=== PATIENT | female | born 2000 | race Caucasian/White ===

== ENCOUNTER 2023-04-11 20:18 | Emergency (ER) | payer SELFPAY ==
[~2023-04-11] VITALS: Ht 165 cm; Wt 58.9 kg
[2023-04-11 20:39] VITALS: BP 113/67
[2023-04-11] MEDS ORDERED: AMOX1TAB12 PO (21:09)
--- NOTE | 2023-04-11 21:09 | ED EENT ---
History of Present Illness General Chief Complaint: Dental Problems/Pain Stated Complaint: JAW PAIN Nursing Triage Note: PATIENT STATES JAW PN X2 DAYS. DENIES INJURY. Source: patient Exam Limitations: no limitations History of Present Illness Date Seen by Provider: Apr 11, 2023 Time Seen by Provider: 21:04 Initial Comments Patient is a 22-year-old female who presents to the ED presents ED with left- sided jaw pain. She states pain over the past 2 days. She denies of any specific injury. She has had some pain and discomfort to her lower teeth over the past week but no notable swelling or redness around her teeth. She describes as more sensitivity. She denies of any facial swelling redness ear pain headache dizziness. She does note some popping around her jaw as well. Patient denies fever, chills, body aches, headache, dizziness, chest pain, shortness of breath, neck pain. She has been taking Tylenol without much improvement. Allergies and Home Medications Allergies Coded Allergies: No Known Drug Allergies (Unverified , 04/11/23) Patient Home Medication List Home Medication List Reviewed: Yes Amoxicillin/Potassium Clav (Amox Tr-K Clv 875-125 mg Tab) 875 Mg-125 Mg Tablet, 1 EACH PO BID Prescribed by: PARMINDER GALLO on 04/11/232108 Review of Systems Review of Systems Constitutional: No chills, No diaphoresis, No malaise, No weakness Eyes: Denies Blurred Vision, Denies Drainage, Denies Decreased Acuity Ears: Denies Dizziness, Denies Pain Nose: denies clots, denies congestion, denies pain Mouth: denies clots, denies loose teeth; pain Throat: denies pain, denies swelling Respiratory: No cough, No dyspnea on exertion Cardiovascular: No chest pain Gastrointestinal: No abdominal pain, No diarrhea, No nausea, No vomiting Musculoskeletal: No back pain, No joint pain, No joint swelling, No muscle pain Skin: No change in color, No change in hair/nails All Other Systems Reviewed Negative Unless Noted: Yes Past [id number] Hx Immunizations Up To Date Influenza Vaccine Up-to-Date: Yes; Up-to-Date Physical Exam Vital Signs Vital Signs - First Documented 04/11/23 20:39 Temp 37.2 Pulse 74 Resp 20 B/P (MAP) 113/67 (82) Pulse Ox 98 O2 Delivery Room Air Height, Weight, BMI Height: '" Weight: lbs. oz. kg; 21.00 BMI Method: General Appearance: WD/WN, no apparent distress Eyes: bilateral eye normal inspection, bilateral eye PERRL, bilateral eye EOMI Ears: bilateral ear auricle normal, bilateral ear canal normal, bilateral ear TM normal Nose: normal inspection Mouth/Throat: other (No significant decay. Mild tenderness to the left second molar. No obvious dental fracture. No significant jaw swelling or redness. Clicking of the left TMJ with tenderness to the left lower jawline. No thyroid tenderness. No facial redness) Neck: non-tender, full range of motion, supple, normal inspection Cardiovascular: regular rate, rhythm, no edema, no gallop, no JVD Respiratory: chest non-tender, lungs clear, no accessory muscle use Gastrointestinal: normal bowel sounds, non tender, soft, no organomegaly Neurologic/Psychiatric: physical [employer] employee II-XII nml as tested, no motor/sensory deficits, alert, normal mood/affect, oriented x 3 Skin: normal color Progress/Results/Core Measures Results/Orders My Orders Orders - PRINCESS HURD Amoxicillin/Clavulanate Tablet (Amoxicil (04/11/23 21:10) Ibuprofen Tablet (Ibuprofen Tablet) (04/11/23 21:15) Medications Given in ED Current Medications Medications Dose Ordered Sig/Lizeth Route Start Time Stop Time Status Last Admin Dose Admin Ibuprofen 600 mg ONCE ONCE PO 04/11/23 21:15 04/11/23 21:16 DC 04/11/23 21:23 600 MG Vital Signs/I&O 04/11/23 20:39 Temp 37.2 Pulse 74 Resp 20 B/P (MAP) 113/67 (82) Pulse Ox 98 O2 Delivery Room Air Blood Pressure Mean: 82 Departure Communication (PCP) Differential diagnosis dental infection, sialadenitis, TMJ. Patient with left lower jaw pain. She does report some clicking to the left sided jaw. On exam she has tenderness along the TMJ and left jaw. There is no evidence of swelling or erythema. No obvious parotid swelling or submandibular swelling. No lymphadenopathy. Thyroid does not appear enlarged. No evidence stridor. Oropharynx patent. Does have some mild tenderness to the left lower molar. No significant gum swelling or redness. Bilateral TMs clear. No headache dizziness visual changes. Suspect patient likely has TMJ due to the clicking sensation and location of tenderness. She does have some mild tenderness to the left lower teeth and she does report some increased sensitivity. Do not have a dental x-ray to obtain at this time but will prescribe antibiotic to take for po tential underlying dental infection. There is no evidence of an abscess on exam. I do feel that patient most likely has TMJ. At this time recommend NSAID, warm compresses. Discussed a mouthguard to help. Recommend massaging the masseter muscle. Suggest dental outpatient follow-up for further evaluation. Will discharge with anti-inflammatories. Discharged with Augmentin. If increased pain, redness or swelling of the face return back to ED. Impression Primary Impression: TMJ (dislocation of temporomandibular joint) Additional Impression: Pain, dental Disposition: HOME, SELF-CARE Condition: Stable Departure-Patient Inst. Decision time for Depature: 21:07 Referrals: [facility] [place]LOCAL PHYSICIAN (PCP) Primary Care Physician Patient Instructions: Temporomandibular joint (TMJ) disorders, Dental Pain ED Add. Discharge Instructions: Recommend ibuprofen to help with pain. Recommend soft food diet. Moist heat massaging the left-sided jaw. Suggest getting a mouthguard to help as well. Recommend dental outpatient follow-up. We will provide antibiotics for potential dental infection. All discharge instructions reviewed with patient and/or family. Voiced understanding. Scripts Amoxicillin/Potassium Clav (Amox Tr-K Clv 875-125 mg Tab) 875 Mg-125 Mg Tablet 1 EACH PO BID for 7 Days, #14 TAB Prov: PRINCESS HURD 04/11/23 PRINCESS HURD Apr 11, 2023 21:09
[2023-04-11] MEDS ORDERED: AMOXICILLIN/Clavulanate 875 MG TABLET PO STA (21:10)
[2023-04-11] MEDS ORDERED: IBUPROFEN 600 MG TABLET PO ONE (21:15)
== END 2023-04-11 21:26 | disposition home or self-care (01) ==
LOC: ER 20:19
DX: M26.602 Left temporomandibular joint disorder, unspecified (principal)
CPT/HCPCS: 99283